=== PATIENT | female | born 1950 | race Caucasian/White ===

== ENCOUNTER 2018-03-22 12:54 | Emergency (ER) | payer MEDICARE, BC ==
[2018-03-22 13:11] VITALS: BP 182/76
--- NOTE | 2018-03-22 22:05 | ER ---
DATE OF SERVICE: 03/22/2018 HPI: A 67-year-old lady here with concerns about possibly swallowing a partial. She states she was having a bad coughing episode when she lost the partial. She did not notice swallowing anything, but they have looked extensively for it and have not been able to find it. The patient states she has been able to eat and drink okay. She has not eaten much, but she is not having any issues with throat pain or problems breathing. OBJECTIVE: GENERAL APPEARANCE: The patient is awake and alert, in no obvious distress. VITAL SIGNS: Reviewed. Blood pressure of 182/76, pulse is 58, she is afebrile. NECK: Supple. LUNGS: Clear. SKIN: Warm and dry. ABDOMEN: Soft and nontender. LAB AND X-RAY: X-ray of the abdomen was obtained. I do not see any foreign body. DIAGNOSIS: 1. Questionable foreign body swallowed with a negative evaluation. 2. Hypertension. TREATMENT PLAN: I advised patient that no further treatment is needed. She should get her blood pressure checked again. She is on metoprolol and hydrochlorothiazide as well as diltiazem. She needs to be monitoring her blood pressure. Her medications may need to be adjusted. CRS/MODL /[id number] MTDCash
--- NOTE | 2018-03-23 07:26 | CR ---
DATE OF SERVICE: 03/22/2018 CLINICAL DATA: Swallowed her "stay plate". UPRIGHT ABDOMEN: No evidence of obstruction or ileus. No free air. There is a moderate amount of stool noted within the colon. There are calcifications within the pelvis that are most likely vascular. Job: [id number] MTDD
== END 2018-03-22 13:50 | disposition home or self-care (01) ==
LOC: LB.ED 12:54
DX: I10 Essential (primary) hypertension (principal)
CPT/HCPCS: 74018; 99282; 99283